=== PATIENT | male | born 1965 | race Caucasian/White ===

== ENCOUNTER 2019-12-16 21:19 | Emergency (ER) | payer OTHER ==
--- NOTE | 2019-12-16 21:27 | PDOC ---
Rapid Medical Evaluation Time Seen by Provider: 12/16/19 21:24 Medical Evaluation: 12/16/19 21:25 I performed a brief in-person evaluation of this patient. Pt is a 54 y/o male who presents to the ED with rash to his arms, legs, and stomach for the last 1 week. The patient admits to the bites being itchy. He denies any past medical history. Pertinent physical exam findings: Multiple insect bites appreciated to the b/l arms and legs. No pustules, no vesicles. I have ordered the following: none Patient to proceed to ED for further evaluation. Discharge Disposition - Diagnosis Rash - Referrals - Patient Instructions - Post Discharge Activity
[2019-12-16 21:30] VITALS: BP 129/77; PULSE 79; TEMP 98.2; BMI 30.4
== END 2019-12-16 22:52 | disposition left against medical advice (07) ==
LOC: JER 21:19
DX: R21 Rash and other nonspecific skin eruption (principal)
CPT/HCPCS: 99281-25

== ENCOUNTER 2021-01-01 06:34 | Emergency (ER) | payer SELFPAY ==
[2021-01-01 06:58] VITALS: BP 122/80; PULSE 67; TEMP 98.3; BMI 32.5
== END 2021-01-01 08:45 | disposition home or self-care (01) ==
LOC: JER 06:34
DX: Z48.02 Encounter for removal of sutures (principal)
CPT/HCPCS: 99281-25

== ENCOUNTER 2021-07-21 12:09 | Emergency (ER) | payer OTHER ==
[2021-07-21 12:21] VITALS: BP 148/79; PULSE 68; TEMP 97.9; BMI 33.4
[2021-07-21] MEDS ORDERED: IBUPROFEN 600 MG TABLET (FP) PO ONE ×2 (13:24→13:26)
== END 2021-07-21 13:31 | disposition home or self-care (01) ==
LOC: JERFT 12:09
DX: S93.401A Sprain of unspecified ligament of right ankle, initial encounter (principal); W18.42XA Slipping, tripping and stumbling without falling due to stepping into hole or opening, initial encounter
CPT/HCPCS: 73610-TC-RT-FY; 73630-TC-RT-FY; 99283-25

== ENCOUNTER 2023-05-12 19:46 | Emergency (ER) | payer OTHER ==
[2023-05-12 19:51] VITALS: BP 136/81; PULSE 87; RESP 20; TEMP 98.3; BMI 28.8
[2023-05-12] MEDS ORDERED: IBUPROFEN 600 MG TABLET (FP) PO ONE ×2 (20:00→20:01)
== END 2023-05-12 20:17 | disposition home or self-care (01) ==
LOC: JER 19:46
DX: M25.572 Pain in left ankle and joints of left foot (principal); X50.1XXA Overexertion from prolonged static or awkward postures, initial encounter; Y93.01 Activity, walking, marching and hiking; Y92.009 Unspecified place in unspecified non-institutional (private) residence as the place of occurrence of the external cause
CPT/HCPCS: 73610-TC-LT-FY; 73630-TC-LT; 99283-25